=== PATIENT | female | born 1950 | race Caucasian/White ===

== ENCOUNTER 2018-04-18 07:28 | Day surgery (SDC) | payer MEDICARE, BC ==
[~2018-04-18 07:28] MED LIST: Metoclopramide 10 MG/2 ML SDV IV PRN; Sodium Chloride 0.9% 1,000 ML IV SCH; Sodium Chloride 0.9% 10 ML Syringe FLUSH PRN
[2018-04-18] MEDS ORDERED: Propofol 200 MG/20 ML SDV ONE (09:10)
[2018-04-18 09:44] VITALS: BP 116/56
--- NOTE | 2018-04-18 11:40 | OR ---
DATE OF OPERATION: 04/18/2018 PREOPERATIVE DIAGNOSIS: Screening colonoscopy. POSTOPERATIVE DIAGNOSIS: Screening colonoscopy. PROCEDURE: Colonoscopy. ESTIMATED BLOOD LOSS: None. ANESTHESIA: MAC. INDICATIONS FOR THE PROCEDURE: The patient is a 67-year-old female, who is here today for a screening colonoscopy. Last colonoscopy was approximately 10 years ago and was normal per patient. The patient does have a history of metastatic ovarian cancer. Otherwise no change in bowel habits. DESCRIPTION OF PROCEDURE: Informed consent was obtained from the patient. The patient was taken to the operating room and placed on the table in the left lateral decubitus position. Monitored anesthesia care was administered. Digital rectal exam was normal. Endoscope was then advanced through the anus under direct visualization and directed towards the cecum. Cecum was reached, identified by appendiceal orifice and the ileocecal valve. The colonoscope was then withdrawn. No masses. No polyps. No diverticula. No AV malformations. No areas of ischemia or inflammation were identified. Retroflexion was then performed in the rectum which was also unremarkable. Colonoscope was then withdrawn. The patient tolerated the procedure well and was brought to recovery room in good condition. FINDINGS: Normal colonoscopy. RECOMMENDATIONS: We would recommend repeat screening colonoscopy in 10 years. SHAYNA/STEFFI /[id number]
== END 2018-04-18 11:45 | disposition home or self-care (01) ==
LOC: LB.SDS 07:28
PROVIDERS: ATTEND Surgery
DX: Z12.11 Encounter for screening for malignant neoplasm of colon (principal); Z85.43 Personal history of malignant neoplasm of ovary
CPT/HCPCS: J2704; J7030

== ENCOUNTER → 2019-03-17 | Emergency (ER) | payer MEDICARE ==
[~2019-03-17] MED LIST changes: +Amoxicillin/Clavulanate K 875-125 MG Tab ONE; +Bacitracin/Neomycin/Polymyxin B Oint 0.9 GM U/D Packet ONE; +Diphtheria/Tetanus Toxoids,Adult (Td) 0.5 ML SDV IM ONE; -Metoclopramide 10 MG/2 ML SDV IV PRN; -Sodium Chloride 0.9% 1,000 ML IV SCH; -Sodium Chloride 0.9% 10 ML Syringe FLUSH PRN
[2019-03-17 18:55] VITALS: BP 141/85
--- NOTE | 2019-03-17 19:24 | EDM.PDOC ---
ED HPI GENERAL MEDICAL PROBLEM - General Chief Complaint: Bite:Animal, Insect Stated Complaint: DOG BITE Time Seen by Provider: 03/17/19 18:00 Source of Information: Reports: Patient History Limitations: Reports: No Limitations - History of Present Illness INITIAL COMMENTS - FREE TEXT/NARRATIVE: This is a 68yo F here for a dog bite of the left posterior thigh. Patient denies any issues at this time. No chest pain, no shortness of breath or other concerns. She does not recall her last tetanus. Per patient the dog belongs to Hannah Pruvis and the dog has all its immunizations. Onset: Sudden Location: Reports: Lower Extremity, Left Severity: Mild Improves with: Reports: None Worsens with: Reports: None Associated Symptoms: Reports: No Other Symptoms - Related Data Allergies Allergy/AdvReac Type Severity Reaction Status Date / Time No Known Allergies Allergy Verified 03/17/19 17:54 Home Meds: Home Meds Tamoxifen [Nolvadex] 10 mg PO DAILY 03/17/19 [History] Past Medical History - Past Health History Medical/Surgical History: Denies Medical/Surgical History Gastrointestinal History: Reports: None Genitourinary History: Reports: None Musculoskeletal History: Reports: Fracture Hematologic History: Reports: Blood Transfusion(s), Other (See Below) Other Hematologic History: Platelet transfusion Oncologic (Cancer) History: Reports: Ovarian - Past Surgical History GI Surgical History: Reports: Colonoscopy Female Surgical History: Reports: Hysterectomy Musculoskeletal Surgical History: Reports: Other (See Below) Other Musculoskeletal Surgeries/Procedures:: surgery to fix femur fx Oncologic Surgical History: Reports: None Social & Family History - Family History Family Medical History: Noncontributory ED ROS GENERAL - Review of Systems Review Of Systems: ROS reveals no pertinent complaints other than HPI. ED EXAM, ANIMAL BITE - Physical Exam Exam: See Below Exam Limited By: No Limitations General Appearance: Alert, WD/WN, No Apparent Distress Eye Exam: Bilateral Eye: EOMI, PERRL Ears: Normal External Exam Nose: Normal Inspection, Normal Mucosa, No Blood Throat/Mouth: Normal Inspection, Normal Lips, Normal Teeth Head: Atraumatic, Normocephalic Neck: Normal Inspection, Supple, Non-Tender Respiratory/Chest: No Respiratory Distress, Lungs Clear Cardiovascular: Normal Peripheral Pulses, Regular Rate, Rhythm Peripheral Pulses: 2+: Dorsalis Pedis (L), Dorsalis Pedis (R) GI/Abdominal: Normal Bowel Sounds, Soft, Non-Tender, No Organomegaly Back Exam: Normal Inspection Extremities: Other (left posterior thigh 3 bite wounds and ecchymosis 4x6cm proximal with 0.3cm puncture and 1.5cm puncture and thrid puncture and tear 3cm long) Neurological: Alert, Oriented, CN II-XII Intact ED ANIMAL BITE PROCEDURES - Additional/Other Procedure(s) Other (Free Text) Procedure(s): Wound cleansed and explored. Wound to be left open due to dog bite at this time. Mupirocin placed and dressing placed with coban over top. Counseled on wound care. Course - Vital Signs Last Recorded V/S: Last Vital Signs Temp Pulse 104 H 03/17/19 18:15 Resp 16 03/17/19 18:15 BP 141/85 H 03/17/19 18:15 Pulse Ox - Orders/Labs/Meds Orders: Active Orders 24 hr Category Date Time Status Vaccines to be Administered [RC] PER UNIT ROUTINE Care 03/17/19 19:13 Active Meds: Medications Discontinued Medications Generic Name Dose Route Start Last Admin Trade Name Freq PRN Reason Stop Dose Admin Neomycin/Polymyxin/Bacitracin Confirm 03/17/19 18:08 Triple Antibiotic Oint Administered 03/17/19 18:09 Dose 4 each .ROUTE .STK-MED ONE Tetanus/Diphtheria Toxoids 0.5 ml 03/17/19 19:13 Tenivac IM 03/17/19 19:14 .ONCE ONE Departure - Departure Time of Disposition: 18:45 Disposition: Home, Self-Care 01 Condition: Good Clinical Impression: Dog bite Qualifiers: Encounter type: initial encounter Qualified Code(s): W54.0XXA - Bitten by dog, initial encounter - Discharge Information Instructions: Animal Bite, Adult, [id number], Amoxicillin; Clavulanic Acid tablets, VIS, Tetanus, Diphtheria, and Pertussis (Tdap) - CDC (12/29/2014) Referrals: PCP,None [Primary Care Provider] - Forms: ED Department Discharge - Problem List & Annotations (1) Dog bite SNOMED Code(s): 193886150, 624758337 Code(s): W54.0XXA - BITTEN BY DOG, INITIAL ENCOUNTER Status: Acute Priority: High Current Visit: Yes Qualifiers: Encounter type: initial encounter Qualified Code(s): W54.0XXA - Bitten by dog, initial encounter - Problem List Review Problem List Initiated/Reviewed/Updated: Yes - My Orders Last 24 Hours: My Active Orders 03/17/19 19:13 Vaccines to be Administered [RC] PER UNIT ROUTINE - Assessment/Plan Last 24 Hours: My Active Orders 03/17/19 19:13 Vaccines to be Administered [RC] PER UNIT ROUTINE Plan: Counseled on wound care and f/u if any changes or worsening of symptoms or infection. Discussed wound care management and change and secondary intention healing. F/u as needed.
== END | disposition home or self-care (01) ==
LOC: LB.ED 17:29
DX: S71.152A Open bite, left thigh, initial encounter (principal); Z23 Encounter for immunization; W54.0XXA Bitten by dog, initial encounter
CPT/HCPCS: 90471; 90714; 99282; A9270